=== PATIENT | female | born 2005 | race Caucasian/White ===

== ENCOUNTER 2024-08-13 18:53 | Emergency (ER) | payer OTHER ==
[~2024-08-13] VITALS: Ht 165.1 cm; Wt 68.9 kg
[2024-08-13] MEDS: TRAMADOL HCL 50 MG TAB PO STA (19:16)
[2024-08-13] MEDS ORDERED: BACITRACIN ZINC 0.9GM TP ONE (19:59)
[2024-08-13] MEDS ORDERED: ULTRAM 50MG50 MG PO (19:59)
[2024-08-13 20:05] VITALS: PULSE 88; RESP 18; TEMP 99.3; O2SAT 100
== END 2024-08-13 22:45 | disposition home or self-care (01) ==
LOC: ER 19:04
DX: S62.396A Other fracture of fifth metacarpal bone, right hand, initial encounter for closed fracture (principal); W22.09XA Striking against other stationary object, initial encounter; Y92.89 Other specified places as the place of occurrence of the external cause
CPT/HCPCS: 99283